=== PATIENT | female | born 1955 | race Caucasian/White ===

== ENCOUNTER 2016-10-22 23:50 | Emergency (ER) | payer MEDICARE ==
[~2016-10-22 23:50] MED LIST: ACID REDUCER20 MG PO; ASPIRIN PO; ASPIRIN81 MG PO; AUGMENTIN PO; CARDIZEM CD180 M1 PO; CARDIZEM CD180 M2 PO; CARVEDILOL12.5 MG PO; COREG12.5 MG PO; DILTIAZEM 24HR180 M1 PO; FAMOTIDINE20 M1 PO; FUROSEMIDE40 MG PO; GABAPENTIN PO; GABAPENTIN400 M2 PO; HIGH BLOOD PRESSURE PO; HUMALOG SLIDING; HUMALOG100 U/M1 SUBQ; HUMALOG100 U/ML; HUMALOG100 U/ML SUBQ; LANTUS INSULIN SQ; LANTUS100 U/ML; LANTUS100 U/ML SUBQ; LASIX PO; LASIX20 MG PO; LEVAQUIN750 M1 PO; LORTAB PO; LOVASTATIN20 M1 PO; MEVACOR; MEVACOR PO; MOBIC15 MG PO; MULTI VITAMIN1 EACH PO; ONE DAILY1 TA1 PO; PROAIR HFA8.5 GM IH; PROTONIX PO; VANTIN200 MG PO; VITAMIN; WATER PILL; ZESTRIL40 MG PO
[2016-10-23 00:17] LABS: BASOPHIL# 0.1 X10e3 (0-0.3); BASOPHIL% 0.9 % (0-2.5); EOSINOPHIL# 0.2 X10e3 (0-0.7); EOSINOPHIL% 2.6 % (0.0-7.0); HEMATOCRIT 39.5 % (35.0-45.0); HEMOGLOBIN 13.3 gm/dL (12.0-16.0); LYMPHOCYTE# 2.3 X10e3 (1.0-3.5); LYMPHOCYTE% 34.9 % (17.0-45.0); MEAN CELL VOLUME 92.6 FL (83-96); MEAN CORPUSCULAR HEMOGLOBIN 31.1 PG (28-34); MEAN CORPUSCULAR HGB CONC 33.6 g/dL (30-36); MEAN PLATELET VOLUME 7.7 FL (6.5-11.5); MONOCYTE# 0.6 X10e3 (0-1.0); MONOCYTE% 8.3 % (3.0-12.0); NEUTROPHIL# 3.5 X10e3 (1.5-7.1); NEUTROPHIL% 53.3 % (40-75); PLATELET COUNT 211 X10e3 (140-420); RED BLOOD COUNT 4.27 X10e (3.90-5.30); RED CELL DISTRIBUTION WIDTH 14.2 % (11.0-15.5); WHITE BLOOD COUNT 6.6 X10e3 (4.0-10.5)
[2016-10-23 00:18] LABS: DIFF IND NO
[2016-10-23 00:41] LABS: CALCIUM SERUM 9.2 mg/dL (8.4-10.2); CREATININE SERUM 1.8 mg/dL (0.6-1.4); GLOM FILT RATE Estimated 30.5 mL/min (>60); POTASSIUM 3.3 mmol/L (3.5-5.1)
[2016-10-23 02:11] LABS: POC - CKMB 2.3 ng/mL (0.0-7.9); POC - TROPONIN <0.05 ng/mL (<=0.05)
== END 2016-10-23 02:05 | disposition home or self-care (01) ==
LOC: CED 23:50
PROVIDERS: Emergency Medicine
DX: E10.649 Type 1 diabetes mellitus with hypoglycemia without coma (principal); Z79.899 Other long term (current) drug therapy
CPT/HCPCS: 80048; 82553; 82947; 84484; 85025; 96372; 96374; 99283; J1610

== ENCOUNTER → 2016-10-26 | Outpatient (CLI) | payer MEDICARE ==
[~2016-10-26] MED LIST changes: +ACETAMINOPHEN650 M3 PO; +AMLODIPINE BES2.5 MG PO; +AMLODIPINE BESY10 MG PO; +CIPRO PO; +COREG PO; +CYMBALTA30 M1 PO; +DESYREL50 MG PO; +FAMOTIDINE20 MG PO; +GABAPENTIN400 MG PO; +K-DUR20 ME1 PO; +LANTUS100 UNITS/ SUBQ; +LIPITOR20 MG PO; +MELOXICAM15 MG PO; +NOVOLOG100 UNITS/ SUBQ
--- NOTE | ~2016-10-26 | MY11 ---
[facility] A Service of [facility] RADIOLOGY TEXT RESULTS PATIENT: LUIS STERN LOCATION: [facility] #: [id number] : 57 UNIT #: [id number] AGE: [address]: Katy Ghosh MD SEX: F ORDER DR: [id number] [facility]. [place], [place] [address] [id number] MR#: [id number] Acc #: [id number] NAME: LUIS STERN. : 1955 SEX: F STUDY DATE/TIME: 10/26/2016 12:42 UNIT: [facility] ROOM: STUDY DESCRIPTION: MY Mammogram Screening Dig Ramiro Attending Physician: Katy Ghosh M.D. Ordering Physician: Katy Ghosh M.D. Primary Care Physician: Katy Ghosh M.D. MEDICAL IMAGING REPORT This report is preliminary unless electronic signature is present EXAM Digital screening mammogram with CAD HISTORY Routine screening. PROCEDURE Bilateral CC and MLO views obtained on a digital mammography unit. FDA-approved CAD device was utilized. COMPARISON 03/19/2015 FINDINGS Scattered fibroglandular density. There is no dominant mass or suspicious calcification. IMPRESSION Negative screening mammogram. Screen internal 1 year suggested. Patients over the age of 40 are entered into a reminder system with target due date for the next mammogram. A result letter will also be sent to the patient. BIRADS: 1, negative. Dictated by... Carson Alvarez M.D. [facility] A Service of [facility] RADIOLOGY TEXT RESULTS PATIENT: LUIS STERN LOCATION: [facility] #: [id number] : 57 UNIT #: [id number] AGE: [address]: Katy Ghosh MD SEX: F ORDER DR: THIS IS AN ELECTRONICALLY VERIFIED REPORT Carson Alvarez M.D. at 10/27/2016 7:08 AM EEPablo/chacha TD: 10/26/2016 16:27 JOB #: [id number] MEDICAL IMAGING REPORT COPY
== END | disposition home or self-care (01) ==
LOC: CWCC 12:17
DX: Z12.31 Encounter for screening mammogram for malignant neoplasm of breast (principal)
CPT/HCPCS: G0202

== ENCOUNTER 2016-11-15 13:24 | Inpatient (IN) | payer MEDICARE, OTHER ==
--- NOTE | ~2016-11-15 | HP ---
Unit #: [id number] #: [id number] Patient: LUIS STERN [id number] [address] [place], [place] [address] [id number] I MR#: [id number] NAME: LUIS STERN. ROOM: 311 Age: 61 Sex: F Admission Date: 11/15/2016 : 1955 Attending Physician: Katy Ghosh M.D. Primary Care Physician: Katy Ghosh M.D. HISTORY AND PHYSICAL REVISED REPORT CHIEF COMPLAINT Nausea, vomiting, and elevated sugar. HISTORY OF PRESENTING ILLNESS Ms. Luis Stern is a 61-year-old female, who has a history of hypertension, hyperlipidemia, diabetes mellitus type 2, chronic kidney disease with baseline creatinine about 1.7, remote history of seizure. A 61-year-old female, who was admitted with vomiting. According to the patient, she was doing well until Tuesday. She was seen in our office on Tuesday and she was doing pretty well. On Tuesday, she started having vomiting and was having a lot of nausea, could not tolerate any diet, so on Tuesday she came to the ER for further evaluation. The patient's blood sugar was very much elevated. She received insulin 6 units IV. She received Reglan, Mylanta, and normal saline and Zofran. The patient's urinalysis was done, which showed 4+ bacteria and was admitted to MedSurg unit. ALLERGIES The patient is not allergic to any medications. PAST SURGICAL HISTORY Tubal. FAMILY HISTORY History of hypertension in the family. PHYSICAL EXAMINATION GENERAL: The patient is lying comfortably in bed. Does not seem to be in any respiratory distress. According to the patient, she is doing much better. She has not had vomiting since yesterday and she has had her breakfast with no vomiting and she is eating her lunch. VITAL SIGNS: Blood pressure is 157/86, respiratory rate 18, pulse is 89, temperature 99.2, oxygen saturation is 96%. HEAD: Head is normocephalic. Eye movements are normal. NECK: Supple. CHEST: Fair air entry. No additional sounds. CVS: S1, S2 positive. Regular rhythm. ABDOMEN: Soft. EXTREMITIES: Negative edema. LMSW: The patient is awake, alert, oriented x3. No focal neurological Unit #: [id number] #: [id number] Patient: LUIS STERN. DIAGNOSTIC STUDIES LABORATORY RESULTS: WBC 12.4, hemoglobin 12.8, hematocrit 38.1, and platelet count of 212. Sodium 139, potassium 4.3, chloride 104, BUN 30, creatinine 1.3. Liver enzymes are stable. B-HOB was slightly elevated. Troponin was done, which is less than 0.05. Urinalysis shows 4+ bacteria. Lactic acid 0.8. Urine culture is growing gram-negative rods, 100,000 colonies, but final result is still pending. HOSPITAL COURSE The patient was admitted to [facility] unit. The patient was started on IV fluids and IV Rocephin. She is doing much better at this time. She has not vomited and has tolerated 2 meals at this time. The patient feels more than 75% better and would like to go home. The patient is being discharged home on following medications. Cipro 500 mg p.o. b.i.d. for 5 days. The patient's final urine culture is still pending. They are going to call her tomorrow to give her the results and she will follow up with me on Tuesday in the office. We will continue rest of home medication. The patient has been advised to check blood sugar at home b.i.d. and bring the log to us. DISCHARGE INSTRUCTIONS 1. The patient is being discharged home in stable condition. 2. Follow up with primary care provider in 1 week. 3. Check blood sugar at home b.i.d. and bring log in 1 week. 4. Continue home medications. Plan of care has been discussed with the patient. *REPORT TYPE MODIFIED Dictated by Richard Wilkinson/min TD: 11/17/2016 05:42 JOB #: [id number] HISTORY AND PHYSICAL Page 1 of 1 X Katy Ghosh MD HISTORY AND PHYSICAL
--- NOTE | ~2016-11-15 | EKG ---
PATIENT: LUIS STERN UNIT #: [id number] Ventricular Rate: 122 BPM Atrial Rate: 122 BPM P-R Interval: 140 ms QRS Duration: 80 ms Q-T Interval: 310 ms QTC Calculation(Bezet): 441 ms P Blanchard: 70 degrees Calculated R Blanchard: -37 degrees Calculated T Blanchard: 46 degrees Diagnosis Line: Sinus tachycardia Diagnosis Line: Left axis deviation Diagnosis Line: Minimal voltage criteria for LVH, may be normal Diagnosis Line: variant Diagnosis Line: Septal infarct , age undetermined Diagnosis Line: Abnormal ECG Diagnosis Line: When compared with ECG of 09-JUN-2016 08:16, Diagnosis Line: Septal infarct is now Present Diagnosis Line: Confirmed by KAREN STOUT MD ([id number]) on Diagnosis Line: 11/16/2016 2:25:27 PM INTERPRETING MD: GIRISH CUENCA
--- NOTE | ~2016-11-15 | CR72 ---
[facility] A Service [facility] RADIOLOGY TEXT RESULTS PATIENT: LUIS STERN LOCATION: [facility] : 57 UNIT #: [id number] AGE: [address]: Katy Ghosh MD SEX: F ORDER DR: [id number] [facility] [address] [facility]. [place], [place] [address] [id number] I MR#: [id number] Acc #: [id number] NAME: LUIS STERN. : 1955 SEX: F STUDY DATE/TIME: 11/15/2016 16:49 UNIT: [address] ROOM: [facility] STUDY DESCRIPTION: CR Chest Single View Portable Attending Physician: Katy Ghosh M.D. Ordering Physician: Tariq Gill M.D. Primary Care Physician: Katy Ghosh M.D. MEDICAL IMAGING REPORT This report is preliminary unless electronic signature is present EXAM Portable chest, 11/15 HISTORY Shortness of air with activity. Epigastric pain and vomiting that started 11/15/2016. History of hypertension. COMPARISON 06/09/2016 FINDINGS A single AP portable view of the chest shows both lungs to be clear. The heart is normal in size. The mediastinal contour is normal. No significant bone abnormalities are seen. IMPRESSION Normal portable chest. Dictated by... Martin Draper Jr., M.D. THIS IS AN ELECTRONICALLY VERIFIED REPORT Martin Draper Jr., M.D. at 11/16/2016 10:07 AM DEVYN/shahid TD: 11/16/2016 07:58 JOB #: [id number] MEDICAL IMAGING REPORT [facility] A Service [facility] RADIOLOGY TEXT RESULTS PATIENT: LUIS STERN LOCATION: [facility] : 57 UNIT #: [id number] AGE: [address]: Katy Ghosh MD SEX: F ORDER DR: Page 1 of 1 COPY
[~2016-11-15 13:24] MED LIST changes: -ACETAMINOPHEN650 M3 PO; -AMLODIPINE BES2.5 MG PO; -AMLODIPINE BESY10 MG PO; -CIPRO PO; -COREG PO; -CYMBALTA30 M1 PO; -DESYREL50 MG PO; -FAMOTIDINE20 MG PO; -GABAPENTIN400 MG PO; -K-DUR20 ME1 PO; -LANTUS100 UNITS/ SUBQ; -LIPITOR20 MG PO; -MELOXICAM15 MG PO; -NOVOLOG100 UNITS/ SUBQ
[2016-11-15 14:05] LABS: BASOPHIL# 0.1 X10e3 (0-0.3); BASOPHIL% 0.4 % (0-2.5); EOSINOPHIL% 0.1 % (0.0-7.0); HEMATOCRIT 38.1 % (35.0-45.0); HEMOGLOBIN 12.8 gm/dL (12.0-16.0); LYMPHOCYTE# 0.6 X10e3 (1.0-3.5); LYMPHOCYTE% 5.2 % (17.0-45.0); MEAN CELL VOLUME 90.3 FL (83-96); MEAN CORPUSCULAR HEMOGLOBIN 30.3 PG (28-34); MEAN CORPUSCULAR HGB CONC 33.5 g/dL (30-36); MEAN PLATELET VOLUME 9.1 FL (6.5-11.5); MONOCYTE# 0.2 X10e3 (0-1.0); MONOCYTE% 1.9 % (3.0-12.0); NEUTROPHIL# 11.4 X10e3 (1.5-7.1); NEUTROPHIL% 92.4 % (40-75); PLATELET COUNT 212 X10e3 (140-420); RED BLOOD COUNT 4.22 X10e (3.90-5.30); RED CELL DISTRIBUTION WIDTH 13.1 % (11.0-15.5); WHITE BLOOD COUNT 12.4 X10e3 (4.0-10.5)
[2016-11-15 14:28] LABS: ALBUMIN SERUM 4.1 g/dL (3.5-5.0); BETA HYDROXYBUTYRATE 1.54 MMOL/L (0.02-0.27); BILIRUBIN, DIRECT 0.1 mg/dL (0.0-0.2); BILIRUBIN,TOTAL 1.1 mg/dL (0.2-2.0); BUN/CREATININE RATIO 23.07; CALCIUM SERUM 9.3 mg/dL (8.4-10.2); CREATININE SERUM 1.3 mg/dL (0.6-1.4); GLOM FILT RATE Estimated 44.4 mL/min (>60); POTASSIUM 4.3 mmol/L (3.5-5.1); PROTEIN TOTAL SERUM 7.9 g/dL (6.0-8.3)
[2016-11-15 14:32] LABS: DIFF IND NO
[2016-11-15 17:14] LABS: POC - CKMB <1.0 ng/mL (0.0-7.9); POC - TROPONIN <0.05 ng/mL (<=0.05)
[2016-11-15 17:16] LABS: URINE SOURCE CLEAN CATCH
[2016-11-15 17:22] LABS: URINE APPEARANCE CLOUDY; URINE BILIRUBIN NEG (NEG); URINE BLOOD 2+ (NEG); URINE COLOR YELLOW; URINE GLUCOSE >1000 MG/DL (NEG); URINE KETONE 1+ (NEG); URINE LEUKOCYTE ESTERASE NEG (NEG); URINE NITRATE NEG (NEG); URINE PH 6.5 (5-8); URINE PROTEIN 3+ (NEG); URINE SPECIFIC GRAVITY 1.027 (1.003-1.035); URINE UROBILINOGEN 0.2 MG/DL (NEG)
[2016-11-15 17:24] LABS: CULTURE INDICATED? YES; URINE BACTERIA AUWI 4+ (NEGATIVE); URINE SQUAMOUS EPITHELIAL CELL FEW /[HPF]
[2016-11-15] MEDS ORDERED: COREG PO (18:08)
[2016-11-15] MEDS ORDERED: K-DUR20 ME1 PO (18:08)
[2016-11-16] MEDS ORDERED: CIPRO PO (13:30)
[2016-11-16] MEDS ORDERED: ACETAMINOPHEN650 M3 PO (13:36)
== END 2016-11-16 15:25 | disposition home or self-care (01) | DRG 690 ==
LOC: CED 13:24 → CEDOF 18:24 → C3A PCU 21:54
PROVIDERS: Emergency Medicine
DX: N39.0 Urinary tract infection, site not specified (principal); E11.22 Type 2 diabetes mellitus with diabetic chronic kidney disease; N18.3 Chronic kidney disease, stage 3 (moderate); R11.2 Nausea with vomiting, unspecified; I12.9 Hypertensive chronic kidney disease with stage 1 through stage 4 chronic kidney disease, or unspecified chronic kidney disease; E78.5 Hyperlipidemia, unspecified; Z79.4 Long term (current) use of insulin
CPT/HCPCS: 36415; 71010; 80048; 80076; 81003; 82010; 82553; 82947; 83605; 83690; 84484; 85025; 87086; 87088; 87186; 93005; 96361; 96374; 96375; 99285; J0696; J1815; J2405; J2765

== ENCOUNTER 2016-12-13 09:17 | Inpatient (IN) | payer MEDICARE, OTHER ==
--- NOTE | ~2016-12-13 | HP ---
Unit #: [id number] #: [id number] Patient: LUIS STERN [id number] [address] [address] [id number] I MR#: [id number] NAME: LUIS STERN. ROOM: [facility] Age: 61 Sex: F Admission Date: 12/13/2016 : 1955 Attending Physician: Katy Ghosh M.D. Primary Care Physician: Katy Ghosh M.D. HISTORY AND PHYSICAL CHIEF COMPLAINT Elevated sugars and vomiting. HISTORY OF PRESENT ILLNESS Ms. Luis Stern is a 61-year-old female who has very poor controlled diabetes. She was admitted in October for diabetic ketoacidosis and was discharged in one day. After controlling blood sugars. According to the patient, she has missed one dose of insulin but I think there is a possibility she has missed more and she is not very compliant with diet. Her blood sugars were high yesterday, in the range of 500. She took her insulin and this morning she started vomiting. She could not control her blood sugar and came to the emergency room and was found to be in diabetic ketoacidosis with bicarb level of 18, ketones positive. The patient has been admitted multiple times for the same kind of reason. She does not complain of fever, chills or rigors. She does not complain of diarrhea. The only complaint she has is fatigue, tiredness and vomiting, although since coming to the hospital she has not vomited. PAST MEDICAL HISTORY 1. History of diabetes mellitus, uncontrolled. 2. Chronic kidney disease stage 3. 3. Hypertension. 4. Hyperlipidemia. 5. Diabetic peripheral neuropathy. 6. History of congestive heart failure. 7. History of esophagitis and gastritis. SOCIAL HISTORY The patient lives at home with her boyfriend. No history of smoking or alcohol abuse. FAMILY HISTORY Hypertension. ALLERGIES No known drug allergies. HOME MEDICATIONS 1. Lantus, dose not known and the patient does not remember. 2. Famotidine 20 mg b.i.d. 3. Amlodipine 2.5 mg daily. 4. Meloxicam 15 mg daily. 5. Lipitor 20 mg daily. 6. Lasix 40 mg daily. Unit #: [id number] #: [id number] Patient: LUIS STERN 7. Gabapentin 400 mg t.i.d. 8. Coreg 12.5 mg t.i.d. REVIEW OF SYSTEMS The patient is a very poor historian. No complaint of chest pain. No complaint of abdominal pain at this time. No complaint of syncopal episode. No complaint of shortness of breath. Again, she is a very poor historian. I do not know how much I can rely on her history. PHYSICAL EXAMINATION GENERAL: The patient is lying in bed. She is being evaluated in ICU bed 6. VITALS: Blood pressure 172/71, respiratory rate 16, pulse 120, temperature 99.1, oxygen saturation 100%. HEENT: Head is normocephalic. Eye movements are normal. Oral cavity, mucosa is dry. NECK: Supple. CHEST: Fair air entry. No additional sounds. HEART: S1 and S2 positive. Regular rhythm. Tachycardia. ABDOMEN: Soft. No organomegaly. No masses felt. EXTREMITIES: Negative edema. Pulses are palpable. NEUROLOGIC: The patient is kind of lethargic, but does wake up and does answer questions and follows commands. DIAGNOSTIC STUDIES IMAGING: Chest x-ray was done, which shows no active disease. Lungs appear clear. LABORATORY: ABG on room air shows pH 7.30, pCO2 36.7, pO2 37.8, bicarb 18.1. White blood cell count 15.1, hemoglobin 12.4, hematocrit 39.7, platelet count 225. Sodium 136, potassium 5.2, chloride 92, bicarb 16, blood sugar 638, BUN 50, creatinine 2.5, magnesium 2.6, amylase and lipase normal. Alcohol 7, beta hydroxybutyrate 6.19. Hemoglobin A1c 10.8. ASSESSMENT The patient is being admitted to the ICU with the diagnosis of 1. Diabetic ketoacidosis. 2. Acute on chronic renal failure with a history of chronic kidney disease stage 3. 3. Hyponatremia. 4. Hypertension, uncontrolled. 5. Leukocytosis. 6. Hyperlipidemia. 7. Noncompliance. PLAN Admit to the ICU. Insulin drip, diabetic ketoacidosis protocol is being started. IV Pepcid 20 mg daily is being given. Lovenox 40 mg subcutaneous daily is being given. Dr. Meadows has been consulted. Home medications have been reviewed and adjusted. Blood pressure medications have been started. Please refer to progress note for further orders. Dictated by Katy Ghosh M.D. KN/gz Unit #: [id number] #: [id number] Patient: LUIS STERN Pablo TD: 12/13/2016 14:58 JOB #: [id number] HISTORY AND PHYSICAL Page 1 of 1 X Katy Ghosh MD X HISTORY AND PHYSICAL
--- NOTE | ~2016-12-13 | CR72 ---
[facility] A Service of [facility] RADIOLOGY TEXT RESULTS PATIENT: LUIS STERN LOCATION: [facility] : 57 UNIT #: [id number] AGE: [address]: Katy Ghosh MD SEX: F ORDER DR: [id number] [facility] [address] [facility] [place] [facility]. [place], [place] [address] [id number] MR#: [id number] Acc #: [id number] NAME: LUIS STERN. : 1955 SEX: F STUDY DATE/TIME: 12/13/2016 8:59 UNIT: [facility] ROOM: STUDY DESCRIPTION: CR Chest Single View Portable Attending Physician: Martin Guzmán M.D. Ordering Physician: Martin Guzmán M.D. Primary Care Physician: Katy Ghosh M.D. MEDICAL IMAGING REPORT This report is preliminary unless electronic signature is present EXAM AP portable chest 12/13/2016 HISTORY 61-year-old female in the ED complaining of new onset shortness of air today. Elevated blood sugar is noted. TECHNIQUE AP portable upright chest x-ray. FINDINGS Heart size and pulmonary vascularity are within normal limits. The lungs appear clear. No visible pulmonary infiltrate or pleural effusion. Old healed right lower anterior rib fractures. No change since 11/15/2016. IMPRESSION 1. No active disease. The lungs appear clear. 2. Old healed right rib fractures. 3. No change since 11/15/2016. Dictated by... Trevor Cramer M.D. THIS IS AN ELECTRONICALLY VERIFIED REPORT Trevor Cramer M.D. at 12/13/2016 3:57 PM HERNANDEZW/ventura TD: 12/13/2016 10:43 JOB #: [id number] MEDICAL IMAGING REPORT [facility] A Service of [facility] & [facility] RADIOLOGY TEXT RESULTS PATIENT: LUIS STENR LOCATION: [facility] : 57 UNIT #: [id number] AGE: [address]: Katy Ghosh MD SEX: F ORDER DR: Page 1 of 1 COPY
--- NOTE | ~2016-12-13 | CT71 ---
[facility] A Service of [facility] RADIOLOGY TEXT RESULTS PATIENT: LUIS STERN LOCATION: [facility] : 57 UNIT #: [id number] AGE: [address]: Katy Ghosh MD SEX: F ORDER DR: [id number] [facility]. [place], [place] [address] [id number] I MR#: [id number] Acc #: [id number] NAME: LUIS STERN. : 1955 SEX: F STUDY DATE/TIME: 12/14/2016 20:45 UNIT: [facility] ROOM: 222 STUDY DESCRIPTION: CT Head Wo Contrast Attending Physician: Katy Ghosh M.D. Ordering Physician: Avery Cancino Jr., M.D. Primary Care Physician: Katy Ghosh M.D. MEDICAL IMAGING REPORT This report is preliminary unless electronic signature is present EXAM CT scan of the head without contrast HISTORY Confusion, vomiting today. COMPARISON 01/27/[address] exam was performed with one or more of the following radiation dose reduction techniques: Automatic exposure control, adjustment of mA and/or kV according to patient size, and iterative reconstruction. Unenhanced images were obtained through the brain. The ventricles and subarachnoid spaces are normal. There are no masses or extraaxial fluid collections or hemorrhage. IMPRESSION Normal unenhanced head CT scan. Dictated by... Ceferino Alston M.D. THIS IS AN ELECTRONICALLY VERIFIED REPORT Ceferino Alston M.D. at 12/15/2016 5:30 AM FEL/psc TD: 12/15/2016 02:31 JOB #: [id number] [facility] A Service [facility] RADIOLOGY TEXT RESULTS PATIENT: LUIS STERN LOCATION: [facility] : 57 UNIT #: [id number] AGE: [address]: Katy Ghosh MD SEX: F ORDER DR: MEDICAL IMAGING REPORT Page 1 of 1 COPY
--- NOTE | ~2016-12-13 | EKG ---
PATIENT: LUIS STERN UNIT #: [id number] Ventricular Rate: 123 BPM Atrial Rate: 123 BPM P-R Interval: 152 ms QRS Duration: 84 ms Q-T Interval: 336 ms QTC Calculation(Bezet): 481 ms P Murdo: 76 degrees Calculated R Murdo: -45 degrees Calculated T Murdo: 66 degrees Diagnosis Line: Sinus tachycardia Diagnosis Line: Left axis deviation Diagnosis Line: Abnormal ECG Diagnosis Line: When compared with ECG of 15-NOV-2016 17:47, Diagnosis Line: Criteria for Septal infarct are no longer Present Diagnosis Line: T wave amplitude has increased in Anterior leads Diagnosis Line: Confirmed by MAIKEL BARTH MD ([id number]) on 12/14/2016 Diagnosis Line: 5:37:41 AM INTERPRETING MD: TAB CUENCA
--- NOTE | ~2016-12-13 | DS ---
Unit #: [id number] #: [id number] Patient: LUIS STERN [id number] [address] [place], [place] [address] [id number] I MR#: [id number] NAME: LUIS STERN. ROOM: 222 Age: 61 Sex: F Admission Date: 12/13/2016 : 1955 Discharge Date: 12/17/2016 Attending Physician: Katy Ghosh M.D. Primary Care Physician: Katy Ghosh M.D. DISCHARGE SUMMARY DISCHARGE DIAGNOSES 1. Status post diabetic ketoacidosis. 2. Insulin-dependent diabetes. 3. Acute renal failure on chronic kidney disease stage 3. 4. Hypertension. 5. Dyslipidemia. 6. Depression. CONSULTS ON THIS HOSPITAL STAY 1. Dr. Meadows, endocrinology. 2. Dr. Cancino, nephrology. 3. Dr. Fisher, psychiatry. DISCHARGE MEDICATIONS 1. Cymbalta 30 mg at bedtime. 2. Desyrel 50 mg p.o. at bedtime. 3. Coreg 12.5 mg p.o. b.i.d. 4. Amlodipine 10 mg daily. 5. Lipitor 20 mg daily. 6. Levemir or Lantus 10 units subcu q.a.m. and 15 units subcu q.h.s. 7. Sliding scale insulin. 8. NovoLog 4 units subcu t.i.d. with meals. 9. Pepcid 20 mg daily. 10. Please note that Mobic and Lasix have been discontinued per nephrology's recommendation. DIAGNOSTIC STUDIES IMAGING: Chest x-ray on admission - No active disease CT of the head - Normal. HISTORY OF PRESENT HOSPITAL STAY Please refer to H and P done by my colleague, Dr. Ghosh, for initial presentation on this female. ACTIVE PROBLEMS AND DIAGNOSES ON THIS HOSPITAL STAY DKA. The patient was admitted to ICU, started on DKA protocol. Dr. Meadows was consulted. Was successfully weaned off of IV insulin. Ketosis and acidosis has resolved. The patient was transitioned to subcu insulin regimen. Currently tolerating p.o. well. Stable. Outpatient followup with Dr. Meadows. Insulin-dependent diabetes, as above. Unit #: [id number] #: [id number] Patient: LUIS STERN Acute kidney injury on chronic kidney disease stage 3. Lasix and Mobic have been discontinued. Last chemistry was with stable renal function. BUN and creatinine at 23 and 1.4, around baseline. Again, status post evaluation per Dr. Cancino. Outpatient followup with nephrology p.r.n. Avoid nephrotoxic meds. Hypertension. Stable. Continue current meds. See discharge med/rec as above. Depression status post evaluation per Dr. Fisher. Continue Cymbalta and trazodone per psychiatry's recommendations. Discharge meds as above. Disposition as above. Dictated by... Richadr Hannon/yari TD: 12/17/2016 16:10 JOB #: [id number] DISCHARGE SUMMARY Page 1 of 1 X Cedric Pena MD X DISCHARGE SUMMARY
--- NOTE | ~2016-12-13 | CO ---
Unit #: [id number] #: [id number] Patient: LUIS STERN [id number] [facility]. [place], [place] [address] [id number] I MR#: [id number] NAME: LUIS STERN. ROOM: 222 Age: 61 Sex: F Admission Date: 12/13/2016 : 1955 Attending Physician: Katy Ghosh M.D. Primary Care Physician: Katy Ghosh M.D. Consultation Date: 12/16/2016 CONSULTATION REPORT REASON FOR CONSULTATION Depression. HISTORY OF PRESENT ILLNESS Ms. Luis Stern is a 61-year-old white female, seen in room 222, bed 1 on 12/16/16 at [facility]. The patient was dressed casually, sitting comfortably in bed, able to answer questions appropriately. Patient admitted feeling sad, depressed. Patient denied receiving any treatment for that. Patient currently denied any suicidal or homicidal ideation. Denied any psychotic symptoms. The patient reported when she was admitted, she had a very high blood glucose, diagnosed in DKA. The patient has a history of noncompliance, poor motivation, depression. The patient has been hospitalized multiple times with similar reasons. The patient carries a diagnosis of diabetes mellitus, kidney disease, hypertension. PAST PSYCHIATRIC HISTORY Unremarkable for any history of any previous treatment but history of depression. MEDICAL HISTORY Remarkable for history of diabetes mellitus, chronic kidney disease stage 3, hypertension, hyperlipidemia, diabetic peripheral neuropathy, history of congestive heart failure, history of esophagitis, gastritis. MEDICATIONS The patient is on Lantus, famotidine, amlodipine, meloxicam, Lipitor, Lasix, gabapentin, Coreg. FAMILY HISTORY/SOCIAL HISTORY The patient has poor support system. No known history of any substance abuse. No history of any abuse. REVIEW OF SYSTEMS A complete review of systems is unremarkable except for anxiety, depression, trouble sleeping. MENTAL STATUS EXAMINATION Vital signs - 98.1, 76, 17, 147/76, oxygen saturation 97%. General appearance - Patient is dressed casually. Attention span, concentration - Fair. Speech - Regular rate, coherent. Oriented to time, place and person. Mood and affect - Sad, dysphoric. Speech - Regular rate. Thought process - Goal directed. The patient denied any thoughts of harming self or others or any psychotic symptoms. Recent and remote memory - Fair. Language - Unit #: [id number] #: [id number] Patient: LUIS STERN Able to name objects, repeat phrases. Fund of knowledge - Fair. Insight and judgment - Fair to slightly impaired. DIAGNOSIS 1. PSYCHIATRIC: Major depressive disorder, recurrent, severe, F33.2. 2. SECONDARY DIAGNOSIS: Deferred 3. MEDICAL DIAGNOSIS: Please refer to H and P. 4. STRESSOR: Psychosocial stressors. ASSESSMENT AND PLAN 1. Supportive psychotherapy and psychoeducation provided to the patient. 2. Educated about benefits and side effects of medication and course and prognosis of illness. 3. Advised to start patient on Cymbalta 30 mg daily to help with the depressive symptoms, to help with motivation, as well as for anxiety and also help with peripheral neuropathy. If needed, plan to go up on the dosage. Please feel free to call with any questions, telephone number . Dictated by... Jamshid Fisher M.D. MAL/yari TD: 12/17/2016 09:05 JOB #: [id number] CONSULTATION REPORT Page 1 of 1 X Jamshid Fisher MD X CONSULTATION REPORT
--- NOTE | ~2016-12-13 | A ---
[facility] Nutrition Therapy DATE: 12/14/16 Patient: LUIS STERN Physician: MONAE Address: [address] [place] [address] ROAD Room/Bed: [address], Zip: [place] [address] Admit Date: 12/13/16 Date of : [birth year] Height: 5 4 Weight: 159 72.5 NUTRITIONAL ASSESSMENT: REASON: PT SEEN FOR DX PT IS 61 Y.O. FEMALE ADMITTED FOR DKA PMH: NON-COMPLIANT, DM, CHF, HTN, HLD, PREVIOUS DKA, CKD STAGE 3, SEIZURES, PERIPHERAL NEUROPATHY, ESOPHAGITIS, GASTRITIS Anthropometrics: 5'2", WT: 166# (75 KG), BMI: 30.4 Labs: GLU: 179, BUN: 40, CREAT: 2.0, A1c: 10.8 (REFLECTS POOR GLUCOSE MANAGEMENT), GFR: 26.5, NA+:147 Meds: NOVOLOG, LEVEMIR, KCL, PEPCID, ZOFRAN, NACL I/O & Bowel function: 1166/1095 Skin Integrity: DRY SKIN NOTED ALL OVER BDY Estimated Nutrition Needs: N/A Assessment: CHART REVIEWED AND EVENTS NOTED. PT SEEN FOR DX. PT SITTING IN CHAIR AT BEDSIDE REPORTING FAIR PO INTAKE 2' DECREASED APPETITE PAST FEW DAYS NOTING FEELING NAUSEOUS THIS AM. THIS RD ENCOURAGED SLOW GRADUAL PO INTAKE, PT AGREED BUT REFUSED SUPPLEMENTS. RD ALSO ATTEMPTED TO PROVIDE VERBAL AND WRITTEN CC DIET EDUCATION, BUT PT TOO LETHARGIC. RD LEFT WRITTEN DIET EDUCATION AT BEDSIDE. RD WILL F/U ON EDUCATION NEEDS AT NEXT MEETING. SEE RECOMMENDATIONS BELOW. Dx: IMPAIRED GLYCEMIC CONTROL R/T POOR COMPLIANCE AEB A1c OF 10.8, ELEVATED BLOOD SUGAR LEVELS, NEED FOR THERAPEUTIC DIET ORDER. Intervention: 1. CC DIET (45 GRAMS CARBS PER MEAL) 2. RD LEFT WRITTEN DIET EDUCATION Monitoring, Evaluation and Goals: 1. ORAL INTAKE; CONSUME/TOLERATE DIET W/NO C/O N/V/D (PO>50%) 2. LABS; WNL: GLU 3. GI; PROMOTE REGULAR GI FUNCTION 4. WEIGHTS; PROMOTE WEIGHT MAINTENANCE MONITOR: -PO INTAKE/APPETITE [facility] Therapy DATE: 12/14/16 Patient: LUIS STERN Physician: MONAE Address: [address] [place] [address] Room/Bed: CICCU2-[address] [facility], Zip: [place] [address] Admit Date: 12/13/16 Date of : [birth year] Height: 5 4 Weight: 159 72.5 -WEIGHTS -LABS -EDUCATION NEEDS? Recommendations: 1. CONTINUE TO ENCOURAGE COMPLIANCE OF CURRENT DIET ORDER ABOVE 2. IF PO INTAKE <50%, RECOMMEND TO ORDER GLUCERNA SHAKES BID W/MEALS 3. ENCOURAGE PO INTAKE RD WILL F/U PER PROTOCOL PT IS MILD/MODERATELY COMPROMISED Respectfully, MYESHA BARRIOS MS, RD, LD [facility] cc: client file
--- NOTE | ~2016-12-13 | CO ---
Unit #: [id number] #: [id number] Patient: LUIS STERN [id number] [facility] [address] [facility]. [place], [place] [address] [id number] I MR#: [id number] NAME: LUIS STERN ROOM: 222 Age: 61 Sex: F Admission Date: 12/13/2016 : 1955 Attending Physician: Katy Ghosh M.D. Primary Care Physician: Katy Ghosh M.D. Consultation Date: 12/17/2016 CONSULTATION REPORT REASON FOR CONSULTATION Followup. DISCUSSION Ms. Skaggs is a 61-year-old female, seen in room 222, on 12/17/2016, at [facility]. The patient reported feeling sad and depressed, but reports medication is helping her. No side effects from medication. The patient was started on Cymbalta yesterday and trazodone. The patient denied any thoughts of harming self or others or any psychotic symptom. Reported sleeping good. REVIEW OF SYSTEMS Complete review of systems is unremarkable. MENTAL STATUS EXAMINATION Vital signs; temperature 98.1, heart rate 80, respiratory rate 15, blood pressure 160/74, and oxygen saturation 98%. General appearance; the patient dressed casually in hospital attire, lying comfortably in bed. Attention span and concentration, fair. Speech, regular rate and coherent. Oriented in time, place, and person. Mood and affect were labile, but able to make good eye contact. Pleasant and cooperative during interview. Thought process was coherent. Thought content, the patient denied any thoughts of harming self or others or any psychotic symptom. Recent and remote memory, fair. Language, able to name object and repeat phrases. Fund of knowledge, aware of current event and passive vocabulary intact. Insight and judgment, fair to slightly impaired. DIAGNOSES Psychiatric: Major depressive disorder, recurrent, F33.2. Secondary diagnosis: Deferred. Medical diagnosis: Please refer to H and P. Stressors: Psychosocial stressors. ASSESSMENT/PLAN 1. Supportive psychotherapy and psychoeducation provided to the patient. 2. Educated about benefits and side effects of medication and course and prognosis of illness. The patient was given prescription of Cymbalta 60 mg daily, the patient was started on 30 mg daily and also given trazodone 50 mg q.h.s. p.r.n. for sleep. The patient was advised to follow up at [facility] outpatient program, telephone #[phone]. Unit #: [id number] #: [id number] Patient: LUIS STERN Dictated by... Richard Marroquin/min TD: 12/17/2016 20:10 JOB #: [id number] CONSULTATION REPORT Page 1 of 1 X Jamshid Fisher MD X CONSULTATION REPORT
--- NOTE | ~2016-12-13 | CO ---
Unit #: [id number] #: [id number] Patient: LUIS STERN [id number] [address] [place], [place] [address] [id number] I MR#: [id number] NAME: LUIS STERN. ROOM: 222 Age: 61 Sex: F Admission Date: 12/13/2016 : 1955 Attending Physician: Katy Ghosh M.D. Primary Care Physician: Katy Ghosh M.D. Consultation Date: 12/13/2016 CONSULTATION REPORT REASON FOR CONSULTATION Diabetic ketoacidosis. HISTORY OF PRESENT ILLNESS This is a 61-year-old female with history of type 1 diabetes mellitus poorly controlled, known to me from my office, who presented to the emergency room with nausea, vomiting, and elevated blood sugars. She does report she did miss her insulin, so I am not sure how many doses she did. In the emergency room, she was found to be in a diabetic ketoacidosis and lethargic. She has been started on insulin drip IV fluids and admitted to the unit bed. The patient is being seen in ICU. PAST MEDICAL HISTORY Type 1 diabetes mellitus, poorly controlled; chronic kidney disease, stage 3; hypertension; hyperlipidemia; peripheral neuropathy; congestive heart failure. SOCIAL HISTORY Lives at home with her boyfriend. FAMILY HISTORY Hypertension. ALLERGIES None. HOME MEDICATIONS List is reviewed. The patient has been on Lantus and NovoLog doses unknown. Other medications include amlodipine, Lipitor, Lasix, gabapentin, Coreg. REVIEW OF SYSTEMS Unable to obtain from the patient, is very somnolent. She is arousable, but unable to give any review of systems. PHYSICAL EXAMINATION GENERAL: She is in no respiratory distress. VITAL SIGNS: Temperature 99.4, pulse 109, respirations 15, blood pressure 157/57. HEENT: EOMI. Pupils equally reactive to light. NECK: Supple. No thyromegaly noted. CHEST: Good air entry. CVS: Regular rhythm. S1, S2. No murmurs. Unit #: [id number] #: [id number] Patient: LUIS STERN ABDOMEN: Soft and nontender. Bowel sounds positive. EXTREMITIES: No edema noted. DIAGNOSTIC STUDIES LABORATORY RESULTS: Creatinine on admission was 2.5, glucose 638, CO2 of 16. A1c is about 10.8. Blood gas; pH is 7.3. ASSESSMENT 1. Diabetic ketoacidosis. 2. Hypernatremia. 3. Acute kidney injury on chronic kidney disease. 4. Poor compliance. PLAN We will continue insulin drip at this point. Continue IV hydration. Continue monitor electrolytes and replace as needed. In the morning once the patient is more awake and alert, will be switched to the subcu insulin with Lantus 25 units daily, NovoLog 5 units each meal. Diet will be advanced of consistent carb diet. We will continue to follow the patient for further management. Dictated by... Richard Luo/min TD: 12/14/2016 07:20 JOB #: [id number] CONSULTATION REPORT Page 1 of 1 X Ryan Meadows MD X CONSULTATION REPORT
--- NOTE | ~2016-12-13 | CO ---
Unit #: [id number] #: [id number] Patient: LUIS STERN [id number] [address] [place], [place] [address] [id number] I MR#: [id number] NAME: LUIS STERN. ROOM: 222 Age: 61 Sex: F Admission Date: 12/13/2016 : 1955 Attending Physician: Kayt Ghosh M.D. Primary Care Physician: Katy Ghosh M.D. Consultation Date: 12/14/2016 CONSULTATION REPORT REASON FOR CONSULT Acute on chronic kidney disease. HISTORY OF PRESENT ILLNESS Ms. Stern is a 61-year-old white female with longstanding diabetes with complications and repeated episodes of admissions for diabetic ketoacidosis, whom we were asked to see tonight for the above-related issues. Fortunately, her creatinine has trended down from 2.5 down to 2 today with treatment of her DKA and hydration. Looking at her old labs, it looks like her creatinine has fluctuated significantly over the past few years and she has had repeated episodes of acute kidney injury. The patient is currently confused. I do not know her baseline, but it looks like Dr. Gohsh was concerned about her confusion earlier as well. She has had some nausea and vomiting today. Her blood pressure is noted to be high and she is continuing to childers elevated blood sugars. Dr. Meadows has been managing these. The patient denies any pain or distress. There have been no problems with shortness of breath. No swelling issues. No urinary complaints. She has not received any NSAIDs or any IV contrast studies. Most of the history was obtained from the chart due to the patient's confusion. PAST MEDICAL HISTORY Significant for chronic kidney disease, stage 3; diabetes, poorly controlled with noncompliance; hypertension; hyperlipidemia; diabetic neuropathy; congestive heart failure, unknown type; esophagitis; gastritis. PAST SURGICAL HISTORY Tubal ligation. MEDICATIONS Current hospital medications are as follows: Lantus insulin as directed, NovoLog 5 units with each meals, low-dose sliding scale insulin, Norvasc 5 mg a day, Coreg 6.25 mg b.i.d., Pepcid 20 mg IV daily, Lovenox 40 mg subcu daily and p.r.n. ALLERGIES She has no known drug allergies. FAMILY HISTORY Significant for hypertension. She denies any family history of kidney problems to me. SOCIAL HISTORY The patient lives with a boyfriend. She says that she does not smoke or Unit #: [id number] #: [id number] Patient: LUIS STERN do drugs. No history of alcohol abuse. REVIEW OF SYSTEMS A complete 12-point review of systems was attempted, but simply difficult to obtain secondary to the patient's confusion. She has not had any fevers. No reports of nosebleed or sore throat. She has not complained of any chest pain. There has been no hemoptysis. No reports of hematemesis. No reports of bright red blood per rectum or melena. No reports of hematuria. No rashes or itching. No intolerance to heat or cold. No gross bleeding issues. No pain issues. Unless otherwise indicated, the review of systems was negative. PHYSICAL EXAMINATION VITAL SIGNS: The patient is afebrile, pulse 118, respiratory rate 18, blood pressure 186/86. I's and O's are positive by 71 mL. GENERAL: This is a confused 61-year-old female, who is disoriented to the year and the place, but is in no acute distress. HEENT: Head is atraumatic, normocephalic. Eyes show pink conjunctivae with no scleral icterus. No nasal drainage or nosebleed. Oropharynx is dry. NECK: Shows no rigidity, no JVD. HEART: Tachycardic and regular with no murmur or rub appreciated. LUNGS: Clear with no wheezing or rhonchi. Breathing is nonlabored. ABDOMEN: Soft with mild tenderness. There are active bowel sounds. EXTREMITIES: No lower extremity clubbing, cyanosis, or edema. SKIN: Dry without rashes. MUSCULOSKELETAL: No CVA tenderness to palpation. NEUROLOGIC: Cranial nerves do appear intact and she is moving all 4 extremities. LYMPHATIC: There is no neck or cervical lymphadenopathy. PSYCHIATRIC: Difficult, but she does seem to have some anxiety. DIAGNOSTIC STUDIES LABORATORY RESULTS: Urine tox screen was negative. ABG showed a pH of 7.405, pCO2 of 34, pO2 of 65, bicarb 21. Glucose was 379. Blood cultures are negative to this point. Chemistry earlier today showed a sodium of 147, potassium 3.7, chloride 114, bicarb 24, anion gap of 13, glucose 179, BUN 40, creatinine of 2, albumin 3.5. Earlier ABG showed a pO2 of 91. Hemoglobin A1c was 10.8. Urinalysis on admission did have 2+ protein and no significant blood. Admission bicarb was 16 with a glucose of 638, creatinine was 2.5. Beta-hydroxybutyrate was positive. I do note previous UAs here, have all demonstrated some proteinuria and no significant blood. The admission creatinine of 2.5 and was 1.3 in October. IMAGING STUDIES: Chest x-ray from yesterday was read as no active disease. I do note fairly recent imaging of the abdomen from 06/09/2016 that showed unremarkable kidneys. ASSESSMENT AND PLAN 1. Acute on chronic kidney disease, stage 3. Certainly, her chronic kidney disease is from diabetes with known proteinuria and repeated episodes of acute kidney injury. Her acute kidney injury at this time is likely prerenal in nature from her diabetic ketoacidosis and dehydration with nausea and vomiting. She seems to be getting better with fluids. She does not have fluids running now and I will restart them. We will continue to hold her Lasix and her Mobic. We will recheck blood work in the morning. 2. Hypernatremia. The patient does appear to be dry with her nausea and Unit #: [id number] #: [id number] Patient: LUIS STERN vomiting. I will resume fluids with half normal saline. 3. Proteinuria. Certainly, the patient would benefit long-term from an NICOLE inhibitor or an angiotensin receptor shayy, but with her poor diabetic control with nausea and vomiting use of these would be difficult due to her recurrent prerenal azotemia. 4. Diabetes with poor control. An Endocrine seeing. 5. Confusion. Etiology is unclear. I will be sending her for a CT scan of the head tonight. 6. Hypertension. She is on medications and we will add clonidine p.r.n. tonight. I would like to thank Dr. Ghohs for this consult and the opportunity to participate in the evaluation and care of Ms. Stern. Dictated by... Avery Cancino Jr., M.D. BRIANDA/min TD: 12/15/2016 08:42 JOB #: [id number] CONSULTATION REPORT Page 1 of 1 X Avery Cancino MD CONSULTATION REPORT
[2016-12-13 08:58] LABS: ARTERIAL BLOOD GAS CARBOXY HB 0.7 %sat (0.0-9.0); ARTERIAL BLOOD GAS HCO3 18.1 mmol/L; ARTERIAL BLOOD GAS MET HB 1.1 %sat (0.0-2.0); ARTERIAL BLOOD GAS PCO2 36.7 mmHg (35.0-45.0)
[2016-12-13 09:10] LABS: ARTERIAL BLOOD GAS PO2 37.8 mmHg (80.0-100); ARTERIAL DRAW? NO
[2016-12-13 09:14] LABS: BASOPHIL% 0.1 % (0-2.5); HEMATOCRIT 39.7 % (35.0-45.0); HEMOGLOBIN 12.4 gm/dL (12.0-16.0); LYMPHOCYTE# 0.9 X10e3 (1.0-3.5); LYMPHOCYTE% 5.7 % (17.0-45.0); MEAN CELL VOLUME 96.2 FL (83-96); MEAN CORPUSCULAR HEMOGLOBIN 30.1 PG (28-34); MEAN CORPUSCULAR HGB CONC 31.3 g/dL (30-36); MEAN PLATELET VOLUME 8.9 FL (6.5-11.5); MONOCYTE# 0.5 X10e3 (0-1.0); MONOCYTE% 3.1 % (3.0-12.0); NEUTROPHIL# 14.3 X10e3 (1.5-7.1); NEUTROPHIL% 91.1 % (40-75); PLATELET COUNT 225 X10e3 (140-420); RED BLOOD COUNT 4.13 X10e (3.90-5.30); RED CELL DISTRIBUTION WIDTH 13.7 % (11.0-15.5); WHITE BLOOD COUNT 15.7 X10e3 (4.0-10.5)
[2016-12-13 09:15] LABS: POC - CKMB 1.3 ng/mL (0.0-7.9); POC - TROPONIN <0.05 ng/mL (<=0.05)
[2016-12-13 09:15] LABS: DIFF IND YES
[~2016-12-13 09:17] MED LIST changes: +ACETAMINOPHEN650 M3 PO; +CIPRO PO; +COREG PO; +K-DUR20 ME1 PO
[2016-12-13 09:29] LABS: URINE SOURCE CLEAN CATCH
[2016-12-13 09:34] LABS: PLATELET ESTIMATE NORMAL (NORMAL)
[2016-12-13 09:35] LABS: URINE APPEARANCE CLEAR; URINE BILIRUBIN NEG (NEG); URINE BLOOD TRACE (NEG); URINE COLOR YELLOW; URINE GLUCOSE >1000 MG/DL (NEG); URINE KETONE 3+ (NEG); URINE LEUKOCYTE ESTERASE NEG (NEG); URINE NITRATE NEG (NEG); URINE PH 5.5 (5-8); URINE PROTEIN 2+ (NEG); URINE SPECIFIC GRAVITY 1.023 (1.003-1.035); URINE UROBILINOGEN 0.2 MG/DL (NEG)
[2016-12-13 09:37] LABS: URBCS1 AUWI 0-2 /[HPF] (0-2); URINE BACTERIA AUWI NEG (NEGATIVE); URINE SQUAMOUS EPITHELIAL CELL NONE SEEN /[HPF]; UWBCS1 AUWI 0-2 (0-5)
[2016-12-13 09:40] LABS: CULTURE INDICATED? NO
[2016-12-13 09:47] LABS: AMPHETAMINE NEG (NEG); BARBITURATES NEG (NEG); BENZODIAZEPINES NEG (NEG); COCAINE NEG (NEG); MARIJUANA NEG (NEG); OPIATES NEG (NEG); TRICYCLIC ANTIDEPRESSANTS NEG (NEG); U METHADONE NEG (NEG)
[2016-12-13] MEDS ORDERED: NOVOLOG100 UNITS/ SUBQ (10:06)
[2016-12-13] MEDS ORDERED: FAMOTIDINE20 MG PO (10:06)
[2016-12-13] MEDS ORDERED: LANTUS100 U/ML SUBQ (10:06)
[2016-12-13] MEDS ORDERED: MELOXICAM15 MG PO (10:07)
[2016-12-13] MEDS ORDERED: LIPITOR20 MG PO (10:07)
[2016-12-13] MEDS ORDERED: LASIX PO (10:07)
[2016-12-13] MEDS ORDERED: AMLODIPINE BES2.5 MG PO (10:07)
[2016-12-13] MEDS ORDERED: GABAPENTIN400 MG PO (10:08)
[2016-12-13] MEDS ORDERED: COREG12.5 MG PO (10:09)
[2016-12-13 10:11] LABS: ALBUMIN SERUM 4.3 g/dL (3.5-5.0); BETA HYDROXYBUTYRATE 6.19 MMOL/L (0.02-0.27); BILIRUBIN,TOTAL 1.8 mg/dL (0.2-2.0); CALCIUM SERUM 9.4 mg/dL (8.4-10.2); CREATININE SERUM 2.5 mg/dL (0.6-1.4); GLOM FILT RATE Estimated 20.2 mL/min (>60); MAGNESIUM 2.6 mg/dL (1.6-3.0); PHOSPHOROUS 6.7 mg/dL (2.5-4.6); POTASSIUM 5.1 mmol/L (3.5-5.1); PROTEIN TOTAL SERUM 7.6 g/dL (6.0-8.3)
[2016-12-13 13:59] LABS: BUN/CREATININE RATIO 20.95; CREATININE SERUM 2.1 mg/dL (0.6-1.4)
[2016-12-13 18:20] LABS: BUN/CREATININE RATIO 21.5; CALCIUM SERUM 8.9 mg/dL (8.4-10.2); GLOM FILT RATE Estimated 26.5 mL/min (>60); POTASSIUM 4.6 mmol/L (3.5-5.1)
[2016-12-13 21:17] LABS: CALCIUM SERUM 8.6 mg/dL (8.4-10.2); GLOM FILT RATE Estimated 26.5 mL/min (>60)
[2016-12-14 04:34] LABS: BASOPHIL# 0.1 X10e3 (0-0.3); BASOPHIL% 0.4 % (0-2.5); EOSINOPHIL% 0.1 % (0.0-7.0); HEMATOCRIT 35.4 % (35.0-45.0); HEMOGLOBIN 11.6 gm/dL (12.0-16.0); LYMPHOCYTE# 2.5 X10e3 (1.0-3.5); LYMPHOCYTE% 13.4 % (17.0-45.0); MEAN CELL VOLUME 92.3 FL (83-96); MEAN CORPUSCULAR HEMOGLOBIN 30.2 PG (28-34); MEAN CORPUSCULAR HGB CONC 32.8 g/dL (30-36); MEAN PLATELET VOLUME 8.2 FL (6.5-11.5); MONOCYTE# 1.6 X10e3 (0-1.0); MONOCYTE% 8.2 % (3.0-12.0); NEUTROPHIL# 14.7 X10e3 (1.5-7.1); NEUTROPHIL% 77.9 % (40-75); PLATELET COUNT 197 X10e3 (140-420); RED BLOOD COUNT 3.83 X10e (3.90-5.30); RED CELL DISTRIBUTION WIDTH 13.5 % (11.0-15.5); WHITE BLOOD COUNT 18.9 X10e3 (4.0-10.5)
[2016-12-14 04:35] LABS: DIFF IND NO
[2016-12-14 04:36] LABS: ARTERIAL BLD GAS O2 SATURATION 95.7 % (90.0-100.0); ARTERIAL BLOOD GAS CARBOXY HB 0.8 %sat (0.0-9.0); ARTERIAL BLOOD GAS HCO3 21.9 mmol/L; ARTERIAL BLOOD GAS MET HB 1.2 %sat (0.0-2.0); ARTERIAL BLOOD GAS PCO2 36.1 mmHg (35.0-45.0); ARTERIAL BLOOD GAS PO2 91.2 mmHg (80.0-100); ARTERIAL BLOOD GAS pH 7.391 (7.350-7.450)
[2016-12-14 04:38] LABS: ARTERIAL BLOOD GAS ALLEN TEST NORMAL; ARTERIAL BLOOD GAS ART SITE RIGHT RADIAL; ARTERIAL BLOOD GAS DELIVERY NASAL CANNULA; ARTERIAL DRAW? YES
[2016-12-14 04:44] LABS: ALBUMIN SERUM 3.5 g/dL (3.5-5.0); CALCIUM SERUM 8.6 mg/dL (8.4-10.2); GLOM FILT RATE Estimated 26.5 mL/min (>60); MAGNESIUM 2.4 mg/dL (1.6-3.0); POTASSIUM 3.7 mmol/L (3.5-5.1); PROTEIN TOTAL SERUM 6.5 g/dL (6.0-8.3)
[2016-12-14 15:27] LABS: ARTERIAL BLD GAS O2 SATURATION 93.7 % (90.0-100.0); ARTERIAL BLOOD GAS CARBOXY HB 0.4 %sat (0.0-9.0); ARTERIAL BLOOD GAS HCO3 21.5 mmol/L; ARTERIAL BLOOD GAS MET HB 1.1 %sat (0.0-2.0); ARTERIAL BLOOD GAS PCO2 34.3 mmHg (35.0-45.0); ARTERIAL BLOOD GAS pH 7.405 (7.350-7.450)
[2016-12-14 15:28] LABS: ARTERIAL BLOOD GAS ALLEN TEST NORMAL; ARTERIAL BLOOD GAS ART SITE LEFT RADIAL; ARTERIAL BLOOD GAS DELIVERY RA; ARTERIAL BLOOD GAS PO2 64.6 mmHg (80.0-100); ARTERIAL DRAW? YES
[2016-12-14 15:41] LABS: AMPHETAMINE NEG (NEG); BARBITURATES NEG (NEG); BENZODIAZEPINES NEG (NEG); COCAINE NEG (NEG); MARIJUANA NEG (NEG); OPIATES NEG (NEG); TRICYCLIC ANTIDEPRESSANTS NEG (NEG); U METHADONE NEG (NEG)
[2016-12-14 18:38] LABS: CALCIUM SERUM 8.9 mg/dL (8.4-10.2); CREATININE SERUM 1.9 mg/dL (0.6-1.4); GLOM FILT RATE Estimated 28.2 mL/min (>60); POTASSIUM 3.5 mmol/L (3.5-5.1)
[2016-12-14 23:16] LABS: CALCIUM SERUM 8.7 mg/dL (8.4-10.2); GLOM FILT RATE Estimated 26.5 mL/min (>60); POTASSIUM 3.5 mmol/L (3.5-5.1)
[2016-12-15 07:06] LABS: BASOPHIL% 0.3 % (0-2.5); HEMATOCRIT 35.9 % (35.0-45.0); HEMOGLOBIN 11.8 gm/dL (12.0-16.0); LYMPHOCYTE# 2.2 X10e3 (1.0-3.5); LYMPHOCYTE% 14.2 % (17.0-45.0); MEAN CELL VOLUME 92.1 FL (83-96); MEAN CORPUSCULAR HEMOGLOBIN 30.2 PG (28-34); MEAN CORPUSCULAR HGB CONC 32.8 g/dL (30-36); MEAN PLATELET VOLUME 7.9 FL (6.5-11.5); MONOCYTE# 0.9 X10e3 (0-1.0); MONOCYTE% 6.1 % (3.0-12.0); NEUTROPHIL# 12.1 X10e3 (1.5-7.1); NEUTROPHIL% 79.4 % (40-75); PLATELET COUNT 202 X10e3 (140-420); RED CELL DISTRIBUTION WIDTH 13.8 % (11.0-15.5); WHITE BLOOD COUNT 15.2 X10e3 (4.0-10.5)
[2016-12-15 07:12] LABS: DIFF IND NO
[2016-12-15 08:03] LABS: BUN/CREATININE RATIO 16.84; CALCIUM SERUM 8.9 mg/dL (8.4-10.2); CREATININE SERUM 1.9 mg/dL (0.6-1.4); GLOM FILT RATE Estimated 28.2 mL/min (>60); POTASSIUM 3.5 mmol/L (3.5-5.1)
[2016-12-16 06:41] LABS: HEMATOCRIT 39.8 % (35.0-45.0); MEAN CELL VOLUME 93.3 FL (83-96); MEAN CORPUSCULAR HEMOGLOBIN 30.4 PG (28-34); MEAN CORPUSCULAR HGB CONC 32.6 g/dL (30-36); MEAN PLATELET VOLUME 8.2 FL (6.5-11.5); RED BLOOD COUNT 4.26 X10e (3.90-5.30); RED CELL DISTRIBUTION WIDTH 13.6 % (11.0-15.5); WHITE BLOOD COUNT 10.9 X10e3 (4.0-10.5)
[2016-12-16 06:51] LABS: BUN/CREATININE RATIO 16.42; CALCIUM SERUM 8.7 mg/dL (8.4-10.2); CREATININE SERUM 1.4 mg/dL (0.6-1.4); GLOM FILT RATE Estimated 40.7 mL/min (>60); POTASSIUM 3.5 mmol/L (3.5-5.1)
[2016-12-17 07:09] LABS: MAGNESIUM 1.9 mg/dL (1.6-3.0)
[2016-12-17] MEDS ORDERED: AMLODIPINE BESY10 MG PO (14:54)
[2016-12-17] MEDS ORDERED: LANTUS100 UNITS/ SUBQ (14:57)
[2016-12-17] MEDS ORDERED: NOVOLOG100 UNITS/ SUBQ (14:59)
[2016-12-17] MEDS ORDERED: CYMBALTA30 M1 PO (15:00)
[2016-12-17] MEDS ORDERED: DESYREL50 MG PO (15:03)
== END 2016-12-17 16:17 | disposition home or self-care (01) | DRG 638 ==
LOC: CED 09:17 → CEDOF 10:45 → CICCU2 12:32 → C2A 12-14 14:20
PROVIDERS: Emergency Medicine; Physician Assistant Medical
DX: E13.10 Other specified diabetes mellitus with ketoacidosis without coma (principal); N17.9 Acute kidney failure, unspecified; F33.2 Major depressive disorder, recurrent severe without psychotic features; I13.0 Hypertensive heart and chronic kidney disease with heart failure and stage 1 through stage 4 chronic kidney disease, or unspecified chronic kidney disease; N18.3 Chronic kidney disease, stage 3 (moderate); I50.9 Heart failure, unspecified; E87.0 Hyperosmolality and hypernatremia; Z79.4 Long term (current) use of insulin; E11.42 Type 2 diabetes mellitus with diabetic polyneuropathy; E11.22 Type 2 diabetes mellitus with diabetic chronic kidney disease; E78.5 Hyperlipidemia, unspecified; D72.829 Elevated white blood cell count, unspecified; Z91.19 Patient's noncompliance with other medical treatment and regimen; E86.0 Dehydration; R41.0 Disorientation, unspecified; R80.9 Proteinuria, unspecified; Z98.51 Tubal ligation status
CPT/HCPCS: 36415; 36600; 51702; 70450; 71010; 80048; 80053; 80307; 81003; 82010; 82150; 82550; 82553; 82803; 82947; 83036; 83690; 83735; 84100; 84132; 84484; 85025; 85027; 87040; 93005; 94760; 96361; 96374; 96375; 99285; G0480; J1650; J1815; J2405; J2765

== ENCOUNTER → 2016-12-20 | Outpatient (CLI) | payer MEDICARE ==
[~2016-12-20] MED LIST changes: +AMLODIPINE BES2.5 MG PO; +AMLODIPINE BESY10 MG PO; +CYMBALTA30 M1 PO; +DESYREL50 MG PO; +FAMOTIDINE20 MG PO; +GABAPENTIN400 MG PO; +LANTUS100 UNITS/ SUBQ; +LIPITOR20 MG PO; +MELOXICAM15 MG PO; +NOVOLOG100 UNITS/ SUBQ
[2016-12-20 11:07] LABS: BUN/CREATININE RATIO 11.25; CALCIUM SERUM 8.9 mg/dL (8.4-10.2); CREATININE SERUM 1.6 mg/dL (0.6-1.4); GLOM FILT RATE Estimated 34.7 mL/min (>60); POTASSIUM 3.6 mmol/L (3.5-5.1)
== END | disposition home or self-care (01) ==
LOC: CLAB 09:49
PROVIDERS: Internal Medicine Endocrinology, Diabetes & Metabolism
DX: E10.9 Type 1 diabetes mellitus without complications (principal); E16.2 Hypoglycemia, unspecified; N18.3 Chronic kidney disease, stage 3 (moderate); Z79.4 Long term (current) use of insulin
CPT/HCPCS: 36415; 80048; 80061; 83036

== ENCOUNTER → 2016-12-23 | Outpatient (CLI) | payer MEDICARE ==
--- NOTE | ~2016-12-23 | CR181 ---
[facility] A Service of [facility] RADIOLOGY TEXT RESULTS PATIENT: LUIS STERN LOCATION: [facility] : 57 UNIT #: [id number] AGE: [address]: Anisha Salinas APRN SEX: F ORDER DR: [id number] [facility] [address] [facility]. [place], [place] [address] [id number] O MR#: [id number] Acc #: [id number] NAME: LUIS STERN. : 1955 SEX: F STUDY DATE/TIME: 12/23/2016 11:59 UNIT: [facility] ROOM: STUDY DESCRIPTION: CR Lumbar Spine 2 or 3 Views Attending Physician: Anisha Salinas Aprn Referring Physician: Anisha Salinas Aprn Ordering Physician: Anisha Salinas Aprn Primary Care Physician: Katy Ghosh M.D. MEDICAL IMAGING REPORT This report is preliminary unless electronic signature is present EXAM Lumbar spine 3 views 12/23/2016 COMPARISON None CLINICAL HISTORY Low back pain radiating to right leg for 3 weeks. FINDINGS There is discogenic degenerative change with a slight grade 1, 4-5 anterolisthesis and a mild lower lumbar dextroscoliosis, but there is no fracture, bone destruction or acute abnormality. Incidental note made of a calcified uterine fibroid. Dictated by... Jeramie Burgess M.D. THIS IS AN ELECTRONICALLY VERIFIED REPORT Jeramie Burgess M.D. at 12/24/2016 4:53 PM TEV/to TD: 12/23/2016 16:46 JOB #: [id number] MEDICAL IMAGING REPORT Page 1 of 1 COPY
== END | disposition home or self-care (01) ==
LOC: CRAD 11:30
DX: M54.5 Low back pain (principal); R20.2 Paresthesia of skin
CPT/HCPCS: 72100